=== PATIENT | female | born 1975 | race Caucasian/White ===

== ENCOUNTER 2017-05-31 17:19 | Emergency (ER) | payer BC ==
[~2017-05-31] VITALS: Ht 165.1 cm; Wt 70.3 kg
[2017-05-31 18:44] VITALS: BP 118/76
== END 2017-05-31 18:47 | disposition home or self-care (01) ==
LOC: ER 17:20
DX: T50.991A Poisoning by other drugs, medicaments and biological substances, accidental (unintentional), initial encounter (principal); Y92.89 Other specified places as the place of occurrence of the external cause
CPT/HCPCS: A4606; Z7502; Z7610